=== PATIENT | female | born 1985 ===

== ENCOUNTER 2018-08-13 05:09 | Inpatient (IN) | payer BC, MEDICAID ==
[2018-08-13] MEDS ORDERED: REGLAN ONE (05:35)
[2018-08-13] MEDS ORDERED: PEPCID IV ONE ×2 (05:35→06:14)
[2018-08-13] MEDS ORDERED: BICITRA ONE (05:35)
[2018-08-13] MEDS ORDERED: PITOCin/NS 20 UNIT/1000ML DRIP 20,000 MILLIUNITS/1,000 ML BAG IV ONE (05:36)
[2018-08-13] MEDS ORDERED: LACTATED RINGERS 2,000 ML ONE (05:42)
[2018-08-13] MEDS ORDERED: REGLAN IV ONE (06:14)
[2018-08-13] MEDS ORDERED: BICITRA PO ONE (06:14)
[2018-08-13 06:24] LABS: Basophils % (Auto) 0.5 % (0.0-1.8); Eosinophils # (Auto) 0.1 K/mm3 (0.0-0.4); Eosinophils % (Auto) 0.5 % (0.0-4.3); Hematocrit 39.3 % (30.3-42.9); Hemoglobin 13.5 gm/dl (10.1-14.3); Lymphocytes # (Auto) 1.4 K/mm3 (1.2-5.4); Lymphocytes % (Auto) 13.4 % (13.4-35.0); Mean Corpuscular HGB Conc 34 % (30-34); Mean Corpuscular Volume 87 fl (79-97); Monocytes % (Auto) 9.3 % (0.0-7.3); Platelet Count 204 K/mm3 (140-440); Red Blood Count 4.54 M/mm3 (3.65-5.03); Red Cell Distribution Width 14.1 % (13.2-15.2)
--- NOTE | 2018-08-13 06:52 | History and Physical Report ---
History of Present Illness Date of examination: 08/13/18 Date of admission: 08/13/18 05:09 Chief complaint: Labor History of present illness: Pt is a 32yo HF EDC 08/19/18; EGA 39 1/ weeks presents to L&D complaining of RUC's q 3-5 mins. She was scheduled for a Repeat C Section with Tubal ligation later today. She received care at [facility] since 16 weeks and co-managed with [facility] for sickle cell trait. course has been unremarkable except for previous C Section. records are available and GBS is Negative. Past History Past Medical History: no pertinent history Past Surgical History: section Family/Genetic History: none Social history: no significant social history, - Obstetrical History Expected Date of Delivery: 08/19/18 Actual Gestation: 39 Week(s) 1 Day(s) : 2 Medications and Allergies Allergies Allergy/AdvReac Type Severity Reaction Status Date / Time No Known Allergies Allergy Verified 08/13/18 05:13 Active Meds: Active Medications Oxytocin/Sodium Chloride (Pitocin/Ns 20 Unit/1000ml Drip) 20 units in 1,000 mls @ 0 mls/hr IV TITR HERMANN Lactated Ringer's (Lactated Ringers) 1,000 mls @ 2,250 mls/hr IV PREOP HERMANN Stop: 08/14/18 07:27 Cefazolin Sodium (Ancef/Sterile Water 2 Gm/20 Ml) 2 gm in 20 mls @ 80 mls/hr IV PREOP NR; Protocol Stop: 08/13/18 07:14 Review of Systems All systems: negative - Physical Exam Breasts: Positive: deferred Cardiovascular: Regular rate Lungs: Positive: Clear to auscultation Abdomen: Positive: normal appearance Genitourinary (Female): Positive: normal external genitalia Vagina: Positive: normal moisture Uterus: Positive: enlarged Extremities: Positive: normal - Obstetrical FHR: category 1 Uterine Contraction Monitor Mode: External Cervical Dilatation: 3 (per nurse) Cervical Effacement Percentage: 90 (per nurse) station: -2 Uterine Contraction Pattern: Regular Uterine Tone Measurement Phase: Contraction Uterine Contraction Intensity: Moderate Results Result Diagrams: 08/13/18 06:00 Abnormal lab results 08/13/18 Range/Units 06:00 Hand % (Auto) 9.3 H (0.0-7.3) % Hand # 1.0 H (0.0-0.8) K/mm3 Seg Neutrophils % 76.3 H (40.0-70.0) % Seg Neutrophils # 7.9 H (1.8-7.7) K/mm3 All other labs normal. Assessment and Plan - Patient Problems (1) 39 weeks gestation of Onset Date: 08/13/18 Current Visit: Yes Status: Acute Plan to address problem: A: IUP @ 39 1/7 weeks in labor Previous C Section Desires permanent sterilization P: Admit to L&D for Repeat C Section with BTL (2) Previous section Onset Date: 08/13/18 Current Visit: Yes Status: Acute
[2018-08-13] MEDS ORDERED: ANCEF/STERILE WATER 2 GM/20 ML 2 GM/20 ML SYRINGE IV NR (07:00)
[2018-08-13] MEDS ORDERED: PITOCin/NS 20 UNIT/1000ML DRIP 20 UNITS/1,000 ML BAG IV SCH ×2 (07:00→08:00)
[2018-08-13] MEDS ORDERED: LACTATED RINGERS 1,000 ML IV SCH (07:00)
[2018-08-13] MEDS ORDERED: ZOFRAN IV PRN (07:54)
[2018-08-13] MEDS ORDERED: TYLENOL PO PRN (07:54)
[2018-08-13] MEDS ORDERED: MYLICON PO PRN (07:54)
[2018-08-13] MEDS ORDERED: LANSINOH TP PRN (07:54)
[2018-08-13] MEDS ORDERED: NARCAN 0.4 MG/1 ML IV PRN (07:54)
[2018-08-13] MEDS ORDERED: MILK OF MAGNESIA PO PRN (07:54)
[2018-08-13] MEDS ORDERED: TUCKS PAD TP PRN (07:54)
[2018-08-13] MEDS ORDERED: SODIUM CHLORIDE FLUSH SYRINGE 10 ML IV NR (08:00)
[2018-08-13] MEDS ORDERED: D5LR 1,000 ML IV SCH (08:00)
--- NOTE | 2018-08-13 08:29 | Operative Report ---
Operative Report Operative Report: Date of procedure: 08/13/2018 Pre-operative diagnosis: 1. Intrauterine at 39-1/7 weeks in labor 2 . Previous 3. Desires permanent sterilization Post-operative diagnosis: Same Procedure name(s): 1. Repeat low transverse section 2. Bilateral tubal ligation Surgeon: Mariano Gonzalez MD Vacuum Frame Operator: None Anesthesia: Spinal anesthesia by Chio Wright CRNA EBL: 500 mls Findings: A 2983 g female Apgars 8 at 1 minute 9 at 5 minutes. 2+ meconium fluid. Normal uterus. Normal tubes and ovaries bilaterally. Procedure: After the patient was prepped and draped in usual sterile fashion, and after satisfactory level of epidural anesthesia was obtained, the skin knife was used to make a transverse skin incision through the previous skin scar. The incision was excised down to layer of the fascia, which was nicked in the midline and extended laterally using the Bovie cautery. The rectus muscles were dissected off the rectus fascia both superiorly and inferiorly. The rectus bellies in the midline, and the peritoneum was entered under direct visualization. The peritoneal incision was extended superiorly and inferiorly. A bladder flap was created and the bladder blade was then placed. The uterus was scored in a curvilinear linear fashion, entered in the midline revealing 2+ meconium amniotic fluid. The infant's head was delivered onto the surgical field, and the oropharynx and nasopharynx were bulb suctioned. The rest of the infant's body was delivered, cord was doubly clamped and cut and the infant was handed to the waiting respiratory team. Cord blood was then obtained. The placenta was manually removed from the uterus, and the uterus removed from its normal anatomical position. After gentle uterine lavage, the incision was inspected and found to be without extensions. It was then closed in 2 layers using 0 Vicryl suture in a running interlocking fashion, the second layer imbricating the first. After good hemostasis was achieved, copious amounts or irrigation was performed, and the gutters were suctioned free of blood and blood clots. Attention was then turned to the tubal ligation. First the right fallopian tube was grasped using Tierney and the Filshie clip applied to the proximal portion of the tube. The same procedure was performed on the left fallopian tube, which was grasped using the Tierney and the Filshie clip was applied to the proximal portion of the tube. The Tisseel sealant was sprayed across the uterine incision. The uterus was then returned to its normal anatomical position, and after excellent hemostasis assured, the peritoneum was re-approximated using 3-0 Vicryl suture in a running interlocking fashion, and then the rectus muscles were re-approximated using 3-0 Vicryl suture in a [id number] configuration. The fascia was then re-approximated using 0 Vicryl suture in running interlocking fashion. The subcutaneous layer was made hemostatic using Bovie cautery, the Tisseel sealant was sprayed across the fascial incision and the skin edges re-approximated using 4-0 Vicryl suture in a sub-cuticular fashion. Patient tolerated the procedure well was transported to recovery in stable condition.
[2018-08-13] MEDS: TORADOL IV PRN ×2 (08:47→13:10)
[2018-08-13] MEDS: DILAUDID IV PRN ×2 (09:12→12:26)
--- NOTE | 2018-08-13 10:11 | Anesthesia Consultation ---
Anesthesia Consult and Med Hx Date of service: 08/13/18 - Airway Anesthetic Teeth Evaluation: Good ROM Head & Neck: Adequate Mental/Hyoid Distance: Adequate Mallampati Class: Class II Intubation Access Assessment: Probably Good - Pulmonary Exam CTA: Yes - Cardiac Exam Cardiac Exam: RRR - Pre-Operative Health Status ASA Pre-Surgery Classification: ASA2, Emergency Proposed Anesthetic Plan: Spinal - Pulmonary Hx Smoking: No Hx Asthma: No Hx Respiratory Symptoms: No SOB: No COPD: No Home Oxygen Therapy: No Hx Pneumonia: No Hx Sleep Apnea: No - Cardiovascular System Hx Hypertension: No Hx Coronary Artery Disease: No Hx Heart Attack/AMI: No Hx Angina: No Hx Percutaneous Transluminal Coronary Angioplasty (PTCA): No Hx Cardia Arrhythmia: No Hx Pacemaker: No Hx Internal Defibrillator: No Hx Valvular Heart Disease: No Hx Heart Murmur: No Hx Peripheral Vascular Disease: No - Central Nervous System Hx Neuromuscular Disorder: No Hx Seizures: No Hx Psychiatric Problems: No - Endocrine Hx Renal Disease: No Hx End Stage Renal Disease: No Hx Cirrhosis: No Hx Liver Disease: No Hx Insulin Dependent Diabetes: No Hx Non-Insulin Dependent Diabetes: No Hx Thyroid Disease: No Hx Hypothyroidism: No Hx Hyperthyroidism: No - Hematic Hx Anemia: No Hx Sickle Cell Disease: No - Other Systems Hx Alcohol Use: No Hx Substance Use: No Hx Cancer: No Hx Obesity: No
--- NOTE | 2018-08-13 10:15 | Anesthesia Day of Surgery ---
Anesthesia Day of Surgery - Day of Surgery Patient Examined: Yes Patient H&P Reviewed: Yes Patient is NPO: Yes Beta Blockers: No Cardiac Clearance: No Pulmonary Clearance: No Gerardo's Test: N/A
--- NOTE | 2018-08-13 10:15 | Post Anesthesia Evaluation ---
- Post Anesthesia Evaluation Patient Participated: Yes Airway Patent: Yes Stable Respiratory Function: Yes Nausea/Vomiting: No Temp > 96.8F: Yes Pain Manageable: Yes Adequeate Hydration: Yes Anesthesia Complications: No Block Receding Appropriately: Yes Patient on Ventilator: No
[2018-08-13] MEDS: PRENATAL VITAMIN PO SCH (16:16)
[2018-08-13] MEDS: FEOSOL PO SCH (16:17)
[2018-08-13] MEDS: ANCEF/NS 1 GM/50 ML 1 GM/50 ML BAG IV SCH ×2 (17:10→22:00)
[2018-08-13] MEDS: PERCOCET 5/325 PO PRN (18:02)
[2018-08-13] MEDS: IBUPROFEN PO PRN (18:03)
[2018-08-13 20:39] LABS: Hematocrit 35.6 % (30.3-42.9); Hemoglobin 12.1 gm/dl (10.1-14.3)
[2018-08-13] MEDS ORDERED: SENOKOT PO PRN (22:00)
[2018-08-14] MEDS: IBUPROFEN PO PRN ×4 (00:19→22:20)
[2018-08-14] MEDS: NORCO 5/325 PO PRN ×2 (00:19→06:26)
[2018-08-14] MEDS: PRENATAL VITAMIN PO SCH (10:15)
[2018-08-14] MEDS: FEOSOL PO SCH (10:15)
[2018-08-14] MEDS: PERCOCET 5/325 PO PRN ×2 (10:16→14:55)
[2018-08-14] MEDS ORDERED: M-M-R II VACCINE SUB-Q ONE (12:00)
[2018-08-14] MEDS ORDERED: BOOSTRIX IM ONE (12:00)
--- NOTE | 2018-08-14 12:21 | Progress Note ---
Assessment and Plan - Patient Problems (1) 39 weeks gestation of Onset Date: 08/13/18 Current Visit: Yes Status: Resolved (2) Previous section Onset Date: 08/13/18 Current Visit: Yes Status: Resolved (3) Status post section Onset Date: 08/14/18 Current Visit: Yes Status: Resolved Plan to address problem: A: S/P Repeat C Section with BTL - POD #1 Doing well P: Continue RPOC Anticipate discharge in 24-48hrs Subjective - Subjective Date of service: 08/14/18 Principal diagnosis: s/p Repeat C Section with BTL - POD #1 Interval history: Pt is feeling well without complaints. Bleeding improved. She is tolerating a reg diet without nausea or vomiting, ambulating and voiding without difficulty. Patient reports: appetite normal, voiding normally, pain well controlled, flatus, ambulating normally, no dizzy ambulation, no nauseated Gunpowder: doing well, nursing well, bottle feeding Objective - Vital Signs Latest vital signs: Vital Signs Temp Pulse Resp BP BP Pulse Ox 08/14/18 08:09 97.7 F 76 18 99/62 100 08/14/18 06:26 18 08/14/18 05:34 98.6 F 83 18 100/65 96 08/14/18 01:19 18 08/14/18 00:26 97.8 F 73 18 117/63 98 08/14/18 00:19 18 08/13/18 21:16 97.4 F L 71 18 98/56 97 08/13/18 19:03 18 08/13/18 19:02 18 08/13/18 15:52 98.2 F 75 18 112/63 98 08/13/18 12:28 97.7 F 73 18 107/65 97 Intake and Output 08/13/18 08/14/18 08/14/18 22:59 06:59 14:59 Intake Total 890 Output Total 1400 300 Balance -510 -300 Intake: IV 50 ANCEF/NS 1 GM/50 ML 1 gm 50 In 50 ml @ 100 mls/hr IV Q8H [facility] Rx#:[id number] Oral 840 Output: Urine 1400 300 Indwelling Catheter 1400 Void 300 Other: Total, Intake Amount 480 Total, Output Amount 1000 300 - Exam Breasts: Present: deferred Abdomen: Present: normal appearance, soft Uterus: Present: normal, firm, fundal height below umbilicus Extremities: Present: normal Incision: Present: normal, dry, intact, dressed - Labs Labs: Laboratory Tests 08/13/18 08/13/18 08/13/18 06:00 06:00 20:22 WBC 10.4 RBC 4.54 Hgb 13.5 12.1 Hct 39.3 35.6 MCV 87 MCH 30 MCHC 34 RDW 14.1 Plt Count 204 Lymph % (Auto) 13.4 Wolfe % (Auto) 9.3 H Eos % (Auto) 0.5 Baso % (Auto) 0.5 Lymph # 1.4 Wolfe # 1.0 H Eos # 0.1 Baso # 0.0 Seg Neutrophils % 76.3 H Seg Neutrophils # 7.9 H Blood Type O POSITIVE Antibody Screen Negative
[2018-08-15] MEDS ORDERED: BOOSTRIX IM ONE (06:00)
[2018-08-15] MEDS: IBUPROFEN PO PRN ×2 (06:31→13:46)
[2018-08-15] MEDS: FEOSOL PO SCH (09:33)
[2018-08-15] MEDS: PRENATAL VITAMIN PO SCH (09:34)
--- NOTE | 2018-08-15 09:48 | Progress Note ---
Assessment and Plan - Patient Problems (1) 39 weeks gestation of Onset Date: 08/13/18 Current Visit: Yes Status: Resolved (2) Previous section Onset Date: 08/13/18 Current Visit: Yes Status: Resolved (3) Status post section Onset Date: 08/14/18 Current Visit: Yes Status: Resolved Plan to address problem: A: S/P Repeat C Section with BTL - POD #2 Doing well P: May go home today. Subjective - Subjective Date of service: 08/15/18 Principal diagnosis: s/p Repeat C Section with BTL - POD #2 Interval history: Pt is feeling well without complaints. She is tolerating a reg diet without nausea or vomiting, ambulating and voiding without difficulty, and wants to go home. Patient reports: appetite normal, voiding normally, pain well controlled, flatus, ambulating normally, no dizzy ambulation, no nauseated : doing well, nursing well, bottle feeding Objective - Vital Signs Latest vital signs: Vital Signs Temp Pulse Resp BP Pulse Ox 08/15/18 07:42 98 F 73 18 109/71 08/15/18 00:15 98.3 F 75 18 104/67 98 08/14/18 16:09 98.5 F 84 18 107/67 99 Intake and Output 08/14/18 08/15/18 08/15/18 22:59 06:59 14:59 Intake Total 720 120 360 Balance 720 120 360 Intake: Oral 720 120 360 Other: Total, Intake Amount 360 120 360 # Voids Void 1 1 - Exam Breasts: Present: deferred Abdomen: Present: normal appearance, soft Uterus: Present: normal, firm, fundal height below umbilicus Extremities: Present: normal Incision: Present: normal, dry, intact
--- NOTE | 2018-08-15 10:27 | Discharge Summary ---
Providers - Providers Date of Admission: 08/13/18 05:09 Date of discharge: 08/15/18 Attending physician: MICHELLE GOEL Primary care physician: MICHELLE GOEL Hospitalization Reason for admission: active labor, rupture of membranes, IUP at term, other (Previous C Section; Desires permanent sterilization) Delivery: Procedure: section, bilateral tubal ligation, repeat low transverse Laceration: none Incision: normal, dry, intact Other procedures: none complications: none Discharge diagnosis: IUP at term delivered [place] baby: female Hospital course: Pt is a 32yo HF EDC 08/19/18; EGA 39 02/23 weeks who presented to L&D complaining of RUC's q 3-5 mins. She was already scheduled for a Repeat C Section with Tubal ligation, so she underwent an uncomplicated Repeat C Section with Bilateral Tubal Ligation and tolerated the procedure well. By POD #2 she was tolerating a reg diet without nausea or vomiting, ambulating and voiding without difficulty, and therefore was discharged to home on POD #2 in stable condition. Condition at discharge: Good Disposition: DC-01 TO HOME OR SELFCARE - Discharge Diagnoses (1) 39 weeks gestation of Status: Resolved (2) Previous section Status: Resolved (3) Status post section Status: Resolved Plan - Discharge Medications Prescriptions: Ibuprofen [Motrin 800 MG tab] 800 mg PO Q6H PRN #30 tablet PRN Reason: Pain, Mild (1-3) oxyCODONE /ACETAMINOPHEN [Percocet 5/325 mg] 1 tab PO Q6H PRN #30 tablet PRN Reason: Pain, Moderate (4-6) Vit-Fe Fumar-FA [ Vitamin] 1 each PO QDAY #30 tablet - Provider Discharge Summary Activity: routine, no sex for 6 weeks, no heavy lifting 4 weeks, no strenuous exercise Diet: routine Instructions: routine Additional instructions: [] Smoking cessation referral if applicable(refer to patient education folder for contact #) [] Refer to [facility] Booklet Call your doctor immediately for: * Fever > 100.5 * Heavy vaginal bleeding ( >1 pad per hour) * Severe persistent headache * Shortness of breath * Reddened, hot, painful area to leg or breast * Drainage or odor from incision. * Keep incision clean and dry at all times and follow doctor's instructions regarding bathing/showering - Follow up plan Follow up: MICHELLE GOEL MD [Primary Care Provider] - 14 Days KIYA MONK CNM [Advanced Practice Nurse] - 14 Days
[2018-08-15 12:23] VITALS: BP 114/72
== END 2018-08-15 15:05 | disposition home or self-care (01) | DRG 766 ==
LOC: APU 05:09 → OB 09:48
PROVIDERS: ADMIT Obstetrics & Gynecology; ATTEND Obstetrics & Gynecology
PROC: 10D00Z1 Extraction of Products of Conception, Low, Open Approach (ICD-10-PCS; principal; 2018-08-13)
PROC: 0UL70CZ Occlusion of Bilateral Fallopian Tubes with Extraluminal Device, Open Approach (ICD-10-PCS; 2018-08-13)
PROC: 3E0234Z Introduction of Serum, Toxoid and Vaccine into Muscle, Percutaneous Approach (ICD-10-PCS; 2018-08-14)
DX: O34.211 Maternal care for low transverse scar from previous cesarean delivery (principal); Z3A.39 39 weeks gestation of pregnancy; Z37.0 Single live birth; Z23 Encounter for immunization
CPT/HCPCS: 36415; 85014; 85018; 85025; 86850; 86900; 86901; 90471; 90715; G0378; C9250; J0690; J1170; J1885; J2590; J2765; J7120; J7121